=== PATIENT | female | born 1955 | race Caucasian/White ===

== ENCOUNTER 2022-02-20 00:39 | Day surgery (SDC) | payer MEDICARE, SELFPAY ==
--- NOTE | 2022-02-13 14:01 | PC.NURSE ---
Report to the Outpatient Waiting Room, entrance under the green pavilion located off [facility], at time __6:00AM on date _02/20/22 . Planned Procedure Time: __7:30AM . Time changes happen often and if your time is changed the preop area will call you the afternoon before. - You and your visitor will be asked to self-screen and do not enter if you have any COVID symptoms. - Only one visitor is requested with a max of two and NO children visitors are allowed at this time. - The patient visitor may be requested to leave or wait in car when not with patient due to distancing restrictions. - A mask is optional within the hospital. Patients may have clear liquids (water, carbonated beverages, clear teas, apple juice) until 3 hours prior to surgery with a maximum of 20 ounces. - No food from midnight until time of surgery Take the following medications with a SIP of water the morning of surgery: ___LEVOTHYROXINE Medications to discontinue per physician ____HOLD ALL VITAMINS/SUPPLEMENTS 3 DAYS PRE-OP Date to take last dose_02/16/22 Please no make-up, nail czech, hairspray, perfume, deodorant, or body powder the day of surgery. No jewelry (including any body piercings) or valuables the day of surgery, leave them at home. Please take a shower or bath the night before, or the morning of, surgery with an antibacterial soap. Wear comfortable, loose fitting clothing. Children are encouraged to wear pajamas. - Jewelry must be removed prior to entering the operating room. Rings and piercings that are not removed may be cut off. - The hospital will not accept responsibility for valuables. - Please leave all valuables, including medications, at home the day of surgery. If you are going home after surgery, a licensed fuel oil truck driver must drive you home. - NO public transportation without another adult if you receive anesthesia. - We recommend that an adult stay with you for 24 hours following discharge. - We also recommend that you do not drive, make important decision, drink alcoholic beverages, or take any drugs that were not prescribed by your health care provider for at least 24 hours after your discharge time. Follow any additional instructions given to you from your surgeon. If you or anyone in your household have experienced Covid symptoms in the past week, please notify your surgeon or the nurse liaison at the phone number below for possible testing. Telephone instructions given to _PATIENT__and asked if any additional questions and then verbalized understanding. Patient advised to call surgeon office or pre surgery nurse liaison [phone] if any additional questions.
[2022-02-20 06:09] VITALS: BP 128/87; PULSE 66; RESP 16; TEMP 36.4; O2SAT 97
[2022-02-20] MEDS: LACTATED RINGERS 1,000 ML 30 ML IV CONT (06:23)
--- NOTE | 2022-02-20 06:53 | WPDANESEPPF ---
Anes - Initial Pre Proc Eval Procedure: Operation Date: 02/20/22 07:30 Proposed Procedures p Urethral Sling - Nicko Shankar MD Date/Time: 02/20/22 06:53 Surgeon: Nicko Shankar MD Pre Op Diagnosis: Stress Incont Patient Data Age: 66 Gender: F Height: 1.6 m Weight: 79 kg Last Vital Signs Temp 36.4 C 02/20/22 06:09 Pulse 66 02/20/22 06:09 Resp 16 02/20/22 06:09 BP 128/87 02/20/22 06:09 Pulse Ox 97 02/20/22 06:09 O2 Del Method Room Air 02/20/22 06:09 Allergies Allergy/AdvReac Type Severity Reaction Status Date / Time No Known Allergies Allergy Verified 02/20/22 06:02 Home Medications Medication Instructions Recorded Confirmed Type calcium 600 mg capsule 600 mg PO DAILY 02/13/22 02/20/22 History cholecalciferol (vitamin D3) 125 125 mcg PO DAILY 02/13/22 02/20/22 History mcg (5,000 unit) capsule geriatric multivitamin-min 1 tablet PO DAILY 02/13/22 02/20/22 History [id number]-[id number]-hyal 1 tablet PO DAILY 02/13/22 02/20/22 History 750 mg-100 mg-125 mg-1.65 mg tablet (Glucosamine Chondroit Complx Advan) levothyroxine 150 mcg tablet 150 mcg PO QAM 02/13/22 02/20/22 History Patient hx anesthesia problems: none Family hx anesthesia problems: none Results Review: All pre-operative results and documents have been reviewed as part of the pre-operative evaluation. [facility] Past Medical History Medical History (Updated 02/20/22 @ 06:53 by Josiah Alvares MD) Breast cancer Hypothyroidism JAVON (stress urinary incontinence, female) Surgical History Surgical History (Updated 02/20/22 @ 06:53 by Josiah Alvares MD) H/O breast biopsy left 2003 Social History Social History Smoking status: Never smoker Alcohol intake: current Drinks per week: 5 Substance use: never Living arrangements: with family Additional living arrangements comments: [facility] Spiritual care concerns: No Anes - Eval Final PreProcedure Day of Procedure 02/20/22 06:53 Patient weight: obese Heart: regular rate and rhythm Lungs: clear to auscultation Airway: Mallampati scale class II Neurological: alert and oriented Last oral intake: >/= 8 hours ASA classification: II Emergent: no Anesthetic plan: proceed Anesthesia type and monitoring: general GIVS and standard monitoring Results Review: All pre-operative results and documents have been reviewed as part of the pre-operative evaluation. Informed Consent: The patient's anesthetic plan and its attendant risks and benefits were discussed with the patient/family/POA. Questions were solicited and answers provided to the satisfaction of the patient/family/POA.
--- NOTE | 2022-02-20 07:15 | WPDHPUPDATE1 ---
History and Physical Update Update Date/Time: 02/20/22 07:15 History and Physical has been reviewed, including an updated exam of the patient. There are NO changes in the patient's condition. Risks, benefits, and alternatives have been discussed and questions answered. Patient agrees to proceed with procedure.
--- NOTE | 2022-02-20 07:26 | PM.IMHP ---
H&P: HPI History of Present Illness Date/Time: 02/20/22 07:26 Chief Complaint: Stress incontinence Narrative: 66-year-old stress incontinence. She desires surgical intervention Review of Systems Review of Systems: All systems reviewed & are unremarkable except as noted in HPI and below PMFSH Past Medical History Medical History Breast cancer Hypothyroidism JAVON (stress urinary incontinence, female) Surgical History Surgical History H/O breast biopsy left 2003 Social History Social History Smoking status: Never smoker Alcohol intake: current Drinks per week: 5 Substance use: never Living arrangements: with family Additional living arrangements comments: [facility] Spiritual care concerns: No Meds Home Medications and Allergies Home Medications Medication Instructions Recorded Confirmed Type calcium 600 mg capsule 600 mg PO DAILY 02/13/22 02/20/22 History cholecalciferol (vitamin D3) 125 125 mcg PO DAILY 02/13/22 02/20/22 History mcg (5,000 unit) capsule geriatric multivitamin-min 1 tablet PO DAILY 02/13/22 02/20/22 History nsrzdfifccu-[id number]-[id number]-hyal 1 tablet PO DAILY 02/13/22 02/20/22 History 750 mg-100 mg-125 mg-1.65 mg tablet (Glucosamine Chondroit Complx Advan) levothyroxine 150 mcg tablet 150 mcg PO QAM 02/13/22 02/20/22 History Allergies Allergy/AdvReac Type Severity Reaction Status Date / Time No Known Allergies Allergy Verified 02/20/22 06:02 Vital Signs Vital Signs - 24 hr 02/20/22 06:09 Temperature 97.6 F Pulse Rate 66 Respiratory Rate 16 Blood Pressure 128/87 Pulse Oximetry 97 Oxygen Delivery Room Air Exam Narrative: Urethral hypermobility noted Assessment and Plan Assessment and plan (1) JAVON (stress urinary incontinence, female): Code(s): N39.3 - Stress incontinence (female) (male) Status: Acute Assessment and Plan: Plan for urethral sling. Understands risks of bleeding, infection, damage to urinary tract, lack of efficacy, need for repeat procedures, dyspareunia, urinary tract mesh erosion, vaginal mesh extrusion. She agrees to proceed
[2022-02-20] MEDS: ceFAZolin 2 GM/D5W 50 ML 2 GM/50 ML BAG IVPB (07:30)
[2022-02-20] MEDS: BUPIVACAINE/EPINEPHRINE 0.5% 30 ML VIAL INFILTRATE (07:50)
[2022-02-20 08:03] VITALS: BP 100/63; PULSE 66; RESP 11; O2SAT 92
--- NOTE | 2022-02-20 08:05 | W.PM.PROC2 ---
Procedure Note - Detailed Date of Procedure 02/20/22 Pre-op Diagnosis Stress Incont Post-op Diagnosis Same Procedure Performed mid urethral sling cystoscopy Surgeon Nicko Shankar MD Anesthesia MAC and Local Indications This is a female with confirm stress urinary incontinence. She desires surgical correction. She understands the risks of bleeding, infection, injury to the urinary tract, vaginal mesh extrusion, urinary tract mesh erosion, obstructive voiding requiring a secondary procedure, hip and leg pain, dyspareunia, inability to improve overactive bladder symptoms. She agrees to proceed. Description of Procedure She was correctly identified. Informed consent obtained. She was brought the operating room. She was given appropriate anesthesia. She was given appropriate perioperative antibiotics. A time-out performed. I marked out the site of the inner thigh incisions. I anesthetized the skin and made those incisions. I anesthetized the anterior vaginal wall over the mid urethra. I made a 1 cm incision. I dissected out laterally taking great care not to injure the refilled vaginal wall. I passed the helical trocars. First on the left. Then on the right. I did this from the thigh incision towards the vaginal incision. The sling was connected to the trocars and brought out through the thigh incision. I tensioned the sling appropriately. I cut and the plastic sheaths. I then closed the incision with 2 0 Vicryl. On cystoscopy there is no tumors or surgical artifact. There was no surgical artifact in the urethra. I cut the excess sling material. Close incisions with glue. She was awakened and transferred to the PACU in stable condition. Implants Urethral sling Estimated Blood Loss 20 Drains No Packing No Pathology None sent Complications No immediate complications Condition Stable Disposition PACU
[2022-02-20 08:30] VITALS: BP 114/77; PULSE 63; RESP 14; O2SAT 95
[2022-02-20 09:00] VITALS: BP 123/71; PULSE 56; RESP 14
== END 2022-02-20 09:17 | disposition home or self-care (01) ==
PROVIDERS: Visit Provider Urology
PROC: (CPT 57288; principal; 2022-02-20 07:30)
DX: N39.3 Stress incontinence (female) (male) (principal); E03.9 Hypothyroidism, unspecified; Z85.3 Personal history of malignant neoplasm of breast
CPT/HCPCS: 57288; A9270; C1771; J0690; J1100; J2250; J2405; J2704; J3010; J7030; J7120